=== PATIENT | female | born 1990 | race Caucasian/White ===

== ENCOUNTER 2016-12-01 18:35 | Inpatient (IN) | payer OTHER ==
[~2016-12-01] VITALS: Ht 167.6 cm; Wt 80.7 kg
[2016-12-01 18:57] VITALS: Ht 167.6 cm; Wt 80.7 kg
[2016-12-01 18:58] VITALS: BP 107/65; PULSE 96; RESP 18
[2016-12-01] MEDS ORDERED: MISOPROSTOL 200 MCG TAB PR PRN (20:00)
[2016-12-01] MEDS ORDERED: IBUPROFEN 600 MG TAB PO PRN (20:00)
[2016-12-01] MEDS ORDERED: METHYLERGONOVINE 0.2 MG INJ IM PRN (20:00)
[2016-12-01] MEDS ORDERED: OXYTOCIN 30 UNITS/LR 500 ML IV SCH ×2 (20:00)
[2016-12-01] MEDS ORDERED: OXYTOCIN 30 UNITS/LR 500 ML IV PRN (20:00)
[2016-12-01] MEDS ORDERED: CARBOPROST 250 MCG INJ IM PRN (20:00)
[2016-12-01] MEDS ORDERED: LIDOCAINE 1% (MPF) 30 ML INJ INJ PRN (20:00)
[2016-12-01] MEDS ORDERED: LACTATED RINGER'S 1,000 ML IV PRN (21:00)
--- NOTE | 2016-12-01 21:02 | TRIAGE ---
OB Triage Datetime Report Generated by CPN: 12/01/2016 21:02 Datetime: 12/01/2016 20:00 Stage of : OB Triage Monitor Mode: External Quality: Moderate Pattern: Normal: <= 5 Contractions in 10 Minutes Resting Tone Day: Relaxed Heart Rate FHR Baseline Rate: 150 Monitor Mode: External US FHR Baseline Changes: No Baseline Change Variability: Moderate 6-25 bpm Accelerations: 15X15 Decelerations: Early Category: Category II Datetime: 12/01/2016 19:26 Stage of : OB Triage Labor Evaluation Frequency: 2-10 Monitor Mode: External Duration (sec)2399: 60 Quality: Moderate Pattern: Normal: <= 5 Contractions in 10 Minutes Resting Tone Day: Relaxed Heart Rate FHR Baseline Rate: 150 Monitor Mode: External US FHR Baseline Changes: No Baseline Change Variability: Moderate 6-25 bpm Accelerations: 15X15 Decelerations: Variable Category: Category II Pain Assessment Pain Scale: 4 Pain Presence: Intermittent Pain Type: Contraction Pain Location: Abdomen Vaginal Exam Dilatation (cms): 4.0 Effacement (%): 70 Station: -2 Exam By: E Silvino Membrane Status: Ruptured Membranes Rupture Method: Spontaneous Amniotic Fluid Color: Clear Amniotic Fluid Amount: Large Amniotic Fluid Odor: Normal Vaginal Bleeding: None Pool: Positive Nitrazine: Positive Cervix, Consistency: Soft Cervix, Position: Posterior Presentation 'A': Cephalic Datetime: 12/01/2016 18:56 Assessment Type: Triage Maternal Assessment Level of Consciousness: Fully Conscious DTR's/Clonus: DTRs 2+; No Clonus Headache: Denies Blurred Vision: No Respiratory Effort: Unlabored; Regular Rhythm; Equal Expansion Breath Sounds, Left: Clear and Equal Breath Sounds, Right: Clear and Equal Nausea/Vomiting: Denies RUQ Epigastric Pain: Denies Lower Extremities Edema: None Degree: None Upper Extremities Edema: None Degree: None Facial Edema: None Fall Risk Assessment History of Falling: (0) No Secondary Diagnosis: (0) No Ambulatory Aid: (0) Bedrest/Nurse Assist IV Therapy: (0) No Gait: (0) Normal/Bedrest/Immobile Mental Status: (0) Oriented to Own Ability Fall Score: 0 Fall Risk Score Definition: No Risk: No action required Datetime: 12/01/2016 18:55 Time of Arrival: 12/01/2016 18:30 EGA: 39.2 Arrived By: Ambulatory Arrived From: Home Chief Complaint: PT C/O POSSIBLE SROM AND UC'S Movement: Present Contractions: Irregular Rupture of Membranes: Unsure Vaginal Bleeding: None Vaginal Discharge: Denies Recent Sexual Intercouse: Denies Abdominal Trauma: Not Applicable Patient Complaints: Contractions; Cramping; Back Pain Time Provider Notified: 12/01/2016 20:00 Provider Notified: DANIELLE Initial Plan: EFM,SVE Datetime: 12/01/2016 18:52 Monitor Mode: External Monitor Mode: External US
[2016-12-01 21:08] LABS: ADD SCAN DIFF NO
[2016-12-01 21:13] LABS: BASOPHILS % 0.3 % (0.0-2.0); EOSINOPHILS % 0.3 % (0.0-7.0); HEMATOCRIT 37.7 % (37.0-47.0); HEMOGLOBIN 13.1 g/dl (12.0-16.0); LYMPHOCYTES # 1.8 10^3/ul (0.8-2.9); MEAN CORPUSCULAR HEMOGLOBIN 33.6 pg (29.0-33.0); MEAN CORPUSCULAR HGB CONC 34.7 g/dl (32.0-37.0); MEAN CORPUSCULAR VOLUME 96.7 fl (82.0-101.0); MEAN PLATELET VOLUME 9.9 fl (7.4-10.4); MONOCYTE # 0.6 10^3/ul (0.3-0.9); MONOCYTES % 6.5 % (0.0-11.0); NEUTROPHIL # 6.4 10^3/ul (1.6-7.5); NEUTROPHILS % 71.9 % (39.0-77.0); PLATELET COUNT 170 10^3/UL (140-415); RED CELL DISTRIBUTION WIDTH 12.1 % (11.5-14.5)
[2016-12-01 21:27] LABS: INR 0.9; PROTIME 12.1 Sec (12.2-14.2); PT RATIO 0.9
[2016-12-01 21:28] LABS: PARTIAL THROMBOPLASTIN TIME 25.7 Sec (25.0-35.0)
--- NOTE | 2016-12-01 23:04 | HP ---
Date/Time of Note Date/Time of Note DATE: 12/01/16 TIME: 22:55 OB - History Hx of Present Free Text/Dictation 27 years old A0 HISTORY OF 2 EDC DECEMBER 06 2016 ADMITTED WIT SROM, CLEAR FLUID IN LABOR Chief Complaint: SROM UTERINE CONTRACTIONS Last Menstrual Period: Mar 03, 2016 (03/03/16) Estimated Due Date: Dec 06, 2016 : 3 Para: 2 Care: Limited Care Ultrasounds: Normal mid trimester US Obstetrical Complications: None Medical Complications: None Past Family/Social History * Past Medical, Surgical, Family and Obstetric Histories reviewed from chart. Blood Type: O+ Rubella: immune RPR/VDRL: Negative GBS Status: Negative HBsAG: Negative OB Admission Exam Vital Signs Vital Signs Vital Signs Date Time Temp Pulse Resp B/P Pulse Ox O2 Delivery O2 Flow Rate FiO2 12/01/16 18:58 98.4 96 18 107/65 98 Room Air Physical Exam HEENT: WNL Heart: Rhythm Normal Lungs: Clear, Equal Abdomen: WNL Extremities: Normal Reflexes: Normal Cervical Dilatation: 4cm Effacement: 75% Station: -3 Membranes: Ruptured Amniotic Fluid: Clear Heart Rate: 120's Accelerations: Accelerations Present Decelerations: No Decelerations Varibility: Marked Contractions on Admission: 6-10 Minutes Apart Intensity: Moderate Last 72 hours Lab Results CBC & BMP 12/01/16 20:50 OB Assessment/Plan Reason for admission: active labor, rupture of membranes Plan: Expectant Management Other plan: DELIVERY WERO CONNOR MD Dec 01, 2016 23:04
[2016-12-01] MEDS: LACTATED RINGER'S 1,000 ML IV SCH (23:40)
[2016-12-02] MEDS ORDERED: FENTAnyl 2MCG/ML-ROPIV 0.2% 100 ML ONE (00:48)
[2016-12-02] MEDS ORDERED: NALOXONE (0.4 MG/ML) INJ IV PRN (01:30)
[2016-12-02] MEDS ORDERED: FENTAnyl 2MCG/ML-ROPIV 0.2% 100 ML BAG EPI SCH (01:30)
[2016-12-02] MEDS: LACTATED RINGER'S 1,000 ML IV SCH (01:54)
[2016-12-02] MEDS ORDERED: DIBUCAINE 1% 30 GM OINT PR PRN (03:00)
[2016-12-02] MEDS ORDERED: LANOLIN 7 GM TUBE TOP PRN (03:00)
[2016-12-02] MEDS ORDERED: DIPHENHYDRAMINE 25 MG CAP PO PRN (03:00)
[2016-12-02] MEDS ORDERED: ACETAMINOPHEN/CODEINE #3 TAB PO PRN ×2 (03:00)
[2016-12-02] MEDS ORDERED: ACETAMINOPHEN 325 MG TAB PO PRN ×2 (03:00)
[2016-12-02] MEDS ORDERED: OXYTOCIN 30 UNITS/LR 500 ML IV PRN (03:00)
[2016-12-02] MEDS ORDERED: ONDANSETRON 4 MG INJ IV PRN (03:00)
[2016-12-02] MEDS ORDERED: METHYLERGONOVINE 0.2 MG INJ IM PRN (03:00)
[2016-12-02] MEDS ORDERED: CARBOPROST 250 MCG INJ IM PRN (03:00)
[2016-12-02] MEDS ORDERED: MISOPROSTOL 200 MCG TAB PR PRN (03:00)
--- NOTE | 2016-12-02 03:06 | LDN ---
Date/Time of Note Date/Time of Note DATE: 12/02/16 TIME: 03:04 Delivery Summary augmentation of labor Weeks of Gestation 39 weeks Assisted Vaginal Delivery: Vacuum Placenta Delivered: Spontaneously Meconium: none Episiotomy: No Perineal laceration: 0 Anesthesia type: Epidural Sponge & Needle done & correct: Yes All needle counts correct: Yes Any foreign bodies felt in the: No Problems: Delivery Information Sex Sex: male Apgars 1 Minute: 9 5 Minute: 9 Suctioning Nose & mouth suctioned at dione: Yes Umbilical Cord Umbilical cord with: 3 Vessels Cord presentations: nuchal cord Cord Blood was obtained: Yes Mother & Baby Disposition Disposition Mom & Baby to Maternity; Good: Yes WERO CONNOR MD Dec 02, 2016 03:06
[2016-12-02] MEDS: OXYTOCIN 30 UNITS/LR 500 ML IV SCH ×2 (03:50→06:41)
[2016-12-02 06:20] LABS: ADD SCAN DIFF NO
[2016-12-02 06:26] LABS: BASOPHILS % 0.2 % (0.0-2.0); EOSINOPHILS % 0.2 % (0.0-7.0); HEMATOCRIT 36.2 % (37.0-47.0); HEMOGLOBIN 12.2 g/dl (12.0-16.0); LYMPHOCYTES # 1.9 10^3/ul (0.8-2.9); LYMPHOCYTES % 15.4 % (15.0-51.0); MEAN CORPUSCULAR HEMOGLOBIN 32.9 pg (29.0-33.0); MEAN CORPUSCULAR HGB CONC 33.7 g/dl (32.0-37.0); MEAN CORPUSCULAR VOLUME 97.6 fl (82.0-101.0); MONOCYTE # 0.6 10^3/ul (0.3-0.9); MONOCYTES % 5.1 % (0.0-11.0); NEUTROPHIL # 9.7 10^3/ul (1.6-7.5); NEUTROPHILS % 78.4 % (39.0-77.0); PLATELET COUNT 150 10^3/UL (140-415); RED BLOOD COUNT 3.71 10^6/ul (4.20-5.40); RED CELL DISTRIBUTION WIDTH 12.1 % (11.5-14.5); WHITE BLOOD COUNT 12.4 10^3/ul (4.8-10.8)
[2016-12-02 06:30] VITALS: BP 106/64; PULSE 59; RESP 17
[2016-12-02] MEDS: IBUPROFEN 600 MG TAB PO SCH ×4 (06:40→23:55)
[2016-12-02 08:00] VITALS: BP 101/64; PULSE 62; RESP 18
[2016-12-02] MEDS: SENNA/DOCUSATE NA (8.6MG/50MG) TAB PO SCH ×2 (09:58→21:42)
[2016-12-02 12:00] VITALS: BP 108/63; PULSE 66; RESP 16
[2016-12-02 16:00] VITALS: BP 117/81; PULSE 80; RESP 16
[2016-12-02 19:45] VITALS: BP 103/69; PULSE 64; RESP 18
[2016-12-03 05:07] VITALS: BP 108/63; PULSE 72; RESP 18
[2016-12-03] MEDS: IBUPROFEN 600 MG TAB PO SCH ×4 (06:00→23:56)
[2016-12-03 08:45] VITALS: BP 112/73; PULSE 63; RESP 18
[2016-12-03] MEDS: SENNA/DOCUSATE NA (8.6MG/50MG) TAB PO SCH ×2 (09:55→21:30)
--- NOTE | 2016-12-03 12:00 | PN ---
Date/Time of Note Date/Time of Note DATE: 12/03/16 TIME: 11:58 OB Subjective Subjective Subjective doing well, stable breast feeding not in pain uterus contracted. extremities wnl. lochia normal. cbc wnl OB Objective HEENT: WNL Heart: Rhythm Normal Lungs: Clear, Equal Abdomen: WNL Extremities: Normal Reflexes: Normal WERO CONNOR MD Dec 03, 2016 12:00
[2016-12-03 16:00] VITALS: BP 121/69; PULSE 69; RESP 18
[2016-12-03 20:00] VITALS: BP 103/53; PULSE 81; RESP 18
[2016-12-04 04:40] VITALS: BP 100/63; PULSE 65; RESP 18
[2016-12-04] MEDS: IBUPROFEN 600 MG TAB PO SCH ×2 (06:00→12:54)
[2016-12-04 07:45] VITALS: BP 109/63; PULSE 72; RESP 18
[2016-12-04] MEDS ORDERED: DIPHTH/TET/ACEL PERTUSS (ADULT) 0.5 ML VIAL IM* ONE (09:00)
[2016-12-04] MEDS ORDERED: VARICELLA VACCINE LIVE/PF 1,350 UNIT/0.5 ML ML SC* ONE (09:00)
[2016-12-04] MEDS: SENNA/DOCUSATE NA (8.6MG/50MG) TAB PO SCH (09:41)
--- NOTE | 2016-12-04 11:51 | PD.PPDC ---
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
--- NOTE | 2016-12-04 11:53 | DS ---
Date/Time of Note Date/Time of Note DATE: 12/04/16 TIME: 11:52 Obstetrical Discharge Record Final Diagnosis Final Diagnosis: Term delivered Vaginal Delivery Obstetrical Delivery: Vacuum Extraction Complications Augmentation: Yes Condition on Discharge Physical Assessment Voiding: Yes Bowel Movement: Yes Breast: Soft, non-tender, Filling Fundus: Firm Calf Tenderness: No Patient Condition: Good WERO CONNOR MD Dec 04, 2016 11:53
== END 2016-12-04 15:30 | disposition home or self-care (01) | DRG 775 ==
LOC: OBT 18:35 → L-D 18:36 → OBT 19:30 → L-D 23:05 → PP1 12-02 06:24
PROVIDERS: ADMIT Obstetrics & Gynecology; ATTEND Obstetrics & Gynecology
PROC: 10D07Z6 Extraction of Products of Conception, Vacuum, Via Natural or Artificial Opening (ICD-10-PCS; principal; 2016-12-01)
DX: O69.81X0 Labor and delivery complicated by cord around neck, without compression, not applicable or unspecified (principal); Z37.0 Single live birth; Z3A.39 39 weeks gestation of pregnancy
CPT/HCPCS: 36415; 62319; 85025; 85610; 85730; 86592; 86900; 86901; 87340; 90715; 90716; 96360; 96361; G0463; J2590; J3010; J7120

== ENCOUNTER 2018-11-04 15:07 | Outpatient (CLI) | payer OTHER ==
[~2018-11-04] VITALS: Ht 165.1 cm; Wt 81.5 kg
[2018-11-04 15:40] VITALS: BP 102/61; PULSE 82; Ht 165.1 cm; Wt 81.5 kg
--- NOTE | 2018-11-04 16:59 | TRIAGE ---
OB Triage Datetime Report Generated by CPN: 11/04/2018 16:59 Datetime: 11/04/2018 15:44 Assessment Type: Triage Maternal Assessment Level of Consciousness: Fully Conscious DTR's/Clonus: DTRs 2+; No Clonus Headache: Denies Blurred Vision: No Respiratory Effort: Unlabored; Regular Rhythm; Equal Expansion Breath Sounds, Left: Clear and Equal Breath Sounds, Right: Clear and Equal Nausea/Vomiting: Denies RUQ Epigastric Pain: Denies Lower Extremities Edema: None Degree: None Upper Extremities Edema: None Degree: None Facial Edema: None Fall Risk Assessment History of Falling: (0) No Secondary Diagnosis: (0) No Ambulatory Aid: (0) Bedrest/Nurse Assist IV Therapy: (0) No Gait: (0) Normal/Bedrest/Immobile Mental Status: (0) Oriented to Own Ability Fall Score: 0 Fall Risk Score Definition: No Risk: No action required Datetime: 11/04/2018 15:43 Time of Arrival: 11/04/2018 15:00 EGA: 39.4 Arrived By: Ambulatory Arrived From: Office Chief Complaint: to ob triage from md office with prescription for nst, bpp, efw due to decreased f m Movement: Decreased Contractions: Denies/Absent Rupture of Membranes: Denies Vaginal Bleeding: None Vaginal Discharge: Denies Recent Sexual Intercouse: Denies Abdominal Trauma: Not Applicable Patient Complaints: Other Time Provider Notified: 11/04/2018 16:52 Provider Notified: Initial Plan: nst, bpp, efw
--- NOTE | 2018-11-04 18:24 | PN ---
Triage Information Date/Time 11/04/18 Reason for visit: DFM Weeks of Gestation 39w4d /Para Diabetes: none Hypertention: none Objective Vital Signs Date Temp Pulse Resp B/P (MAP) Pulse Ox O2 O2 Flow FiO2 Time Delivery Rate 11/04/18 98.1 82 102/61 15:40 (75) Heart Rate: 140's Heart Rate Comments CAT I tracing Contractions: None Results/Medications Imaging Results BPP 01/19 ROSITA 13 EFW 3768 gm Disposition: Discharge Assessment/Plan A IUP 39w4d DFM P f/u with OB on november 08 DERICK SANTOS MD November 04, 2018 18:24
== END 2018-11-04 17:00 | disposition home or self-care (01) ==
LOC: OBT 15:07 → L-D 15:08 → OBT 17:00
PROVIDERS: ATTEND Obstetrics & Gynecology
DX: O36.8130 Decreased fetal movements, third trimester, not applicable or unspecified (principal); Z3A.39 39 weeks gestation of pregnancy
CPT/HCPCS: 76815; 76818; Z7500; G0463

== ENCOUNTER 2018-11-10 09:00 | Inpatient (IN) | payer OTHER ==
[~2018-11-10] VITALS: Ht 165.1 cm; Wt 82.7 kg
[2018-11-10] MEDS ORDERED: METHYLERGONOVINE 0.2 MG INJ IM PRN (09:30)
[2018-11-10] MEDS ORDERED: LIDOCAINE 1% (MPF) 30 ML INJ INJ PRN (09:30)
[2018-11-10] MEDS ORDERED: IBUPROFEN 600 MG TAB PO PRN (09:30)
[2018-11-10] MEDS ORDERED: OXYTOCIN 30 UNITS/LR 500 ML IV SCH (09:30)
[2018-11-10] MEDS ORDERED: BUTORPHANOL 2 MG INJ IV PRN ×2 (09:30)
[2018-11-10] MEDS ORDERED: CARBOPROST 250 MCG INJ IM PRN (09:30)
[2018-11-10] MEDS ORDERED: OXYTOCIN 30 UNITS/LR 500 ML IV PRN (09:30)
[2018-11-10] MEDS ORDERED: MISOPROSTOL 200 MCG TAB PR PRN (09:30)
[2018-11-10] MEDS: LACTATED RINGER'S 1,000 ML IV SCH ×2 (09:56→17:29)
[2018-11-10 10:10] VITALS: BP 110/67; PULSE 79; RESP 18
[2018-11-10 10:18] VITALS: Ht 165.1 cm; Wt 82.7 kg
[2018-11-10] MEDS: MISOPROSTOL 50 MCG CAPSULE PO SCH ×3 (11:48→20:06)
[2018-11-10] MEDS ORDERED: MISOPROSTOL 50 MCG CAPSULE PO SCH (13:00)
--- NOTE | 2018-11-10 22:01 | HP ---
Date/Time of Note Date/Time of Note DATE: 11/10/18 TIME: 21:56 OB - History Hx of Present Free Text/Dictation 29 years old female 4 para 3 with an EDC of 11/07/2018 by ultrasound and by last. Menses 10/31/2018. this patient had care in my office uneventfully starting in the second trimester of . She has had early ultrasounds and at this time she is being admitted for induction of labor due to postdates Last Menstrual Period: Jan 24, 2018 Estimated Due Date: November 07, 2018 : 4 Para: 3 Care: Good Care Ultrasounds: Normal mid trimester US Obstetrical Complications: None Medical Complications: None Past Family/Social History * Past Medical, Surgical, Family and Obstetric Histories reviewed from chart. Blood Type: O+ Rubella: immune RPR/VDRL: Negative GBS Status: Negative HBsAG: Negative OB Admission Exam Vital Signs Vital Signs Vital Signs Date Temp Pulse Resp B/P (MAP) Pulse Ox O2 O2 Flow FiO2 Time Delivery Rate 11/10/18 98.3 79 18 110/67 Room Air 10:10 (81) Physical Exam HEENT: WNL Heart: Rhythm Normal Lungs: Clear, Equal Abdomen: WNL Extremities: Normal Reflexes: Normal Cervical Dilatation: Fingertip Effacement: 25% Station: -2 Membranes: Intact Heart Rate: 130's Accelerations: Accelerations Present Contractions on Admission: 6-10 Minutes Apart Intensity: Mild Last 72 hours Lab Results CBC & BMP 11/10/18 09:20 OB Assessment/Plan Reason for admission: induction of labor Plan: Induction Induction Method: per Misoprostol Protocol WERO CONNOR MD November 10, 2018 22:01
[2018-11-11] MEDS: MISOPROSTOL 50 MCG CAPSULE PO SCH (00:31)
[2018-11-11] MEDS: LACTATED RINGER'S 1,000 ML IV SCH ×3 (00:31→10:08)
--- NOTE | 2018-11-11 05:13 | PREAC ---
Date/Time of Note Date/Time of Note DATE: 11/11/18 TIME: 05:12 Anesthesia Eval and Record Evaluation Time Pre-Procedure Interview DATE: 11/11/18 TIME: 05:12 Age 28 Sex female NPO: 8 hrs Preoperative diagnosis Planned procedure labor epidural Past Medical History Past Medical History: Includes GI: Obesity Surgery & Anesthesia Issues No known issue Meds Anticoagulation: No Beta Baron within 24 hr: No Reason Beta Baron not given: Pt. not on B-Baron No Active Prescriptions or Reported Meds Current Medications Lactated Ringer's 1,000 ml @ 125 mls/hr Q8H IV Last administered on 11/11/18at 00:31; Admin Dose 125 MLS/HR; Start 11/10/18 at 09:21 Butorphanol Tartrate (Stadol) 1 mg Q2H PRN IV .PAIN SCALE 1-5; Start 11/10/18 at 09:30 Butorphanol Tartrate (Stadol) 2 mg Q2H PRN IV .PAIN SCALE 6-10; Start 11/10/18 at 09:30 Lidocaine (Xylocaine 1% (Mpf)) 30 ml ONCE PRN INJ .EPISIOTOMY; Start 11/10/18 at 09:30 Oxytocin/Lactated Ringer's 500 ml @ 500 mls/hr ONCE POST IV ; Start 11/10/18 at 09:30 Oxytocin/Lactated Ringer's 500 ml @ 125 mls/hr POST IV ; Start 11/10/18 at 09:30 Ibuprofen (Motrin) 600 mg ONCE PRN PO .PAIN 1-5; Start 11/10/18 at 09:30 Oxytocin/Lactated Ringer's 500 ml @ 0 mls/hr ONCE PRN IV .VAGINAL BLEEDING; Start 11/10/18 at 09:30 Methylergonovine Maleate (Methergine) 0.2 mg ONCE PRN IM .VAGINAL BLEEDING; Start 11/10/18 at 09:30 Carboprost Tromethamine (Hemabate) 250 mcg ONCE PRN IM .VAGINAL BLEEDING; Start 11/10/18 at 09:30 Misoprostol (Cytotec) 1,000 mcg ONCE PRN NM .VAGINAL BLEEDING; Start 11/10/18 at 09:30 Misoprostol (Cytotec 50 Mcg Capsule) 50 mcg Q4 PO Last administered on 11/11/18at 00:31; Admin Dose 50 MCG; Start 11/10/18 at 12:00; Stop 11/11/18 at 09:01 Meds reviewed: Yes Allergies Coded Allergies: No Known Allergy (Unverified , 12/01/16) Allergies Reviewed: Yes Labs/Studies Labs Reviewed: Reviewed by anesthesiologist Result Diagram: 11/10/1820 Laboratory Tests 11/10/18 09:20 Blood Bank Test 11/10/18 09:20 Antibody Screen NEGATIVE Blood Type O POSITIVE Rh Immune Globulin Candidate NO test: Positive Pre-procedure Exam Last vitals Vital Signs Date Temp Pulse Resp B/P (MAP) Pulse Ox O2 O2 Flow FiO2 Time Delivery Rate 11/10/18 98.3 79 18 110/67 Room Air 10:10 (81) Airway: Adequate mouth opening, Adequate thyromental dist Mallampati: Mallampati II Teeth: Normal Lung: Normal Heart: Normal ASA Physical Status ASA physical status: 2 Emergency: None Planned Anesthetic Neuraxial: Epidural Pre-operative Attestations Prior to commencing anesthesia and surgery, the patient was re-evaluated, there was verification of: *The patient's identity *The results of appropriate recent lab work and preoperative vital signs *The above evaluation not changing prior to induction *Anesthetic plan, risk benefits, alternative and complications discussed with patient/family; questions answered; patient/family understands, accepts and wishes to proceed. KRISTYN SMYTH November 11, 2018 05:13
[2018-11-11] MEDS ORDERED: NALOXONE (0.4 MG/ML) INJ IV PRN (05:30)
[2018-11-11] MEDS ORDERED: DIPHENHYDRAMINE 50 MG INJ IV PRN ×2 (05:30→19:30)
[2018-11-11] MEDS ORDERED: HYDROmorphONE 0.5 MG/0.5 ML SYG IV PRN ×2 (05:30)
[2018-11-11] MEDS ORDERED: FENTAnyl 2MCG/ML-ROPIV 0.2% 100 ML BAG EPI SCH (05:30)
[2018-11-11] MEDS ORDERED: OXYTOCIN 30 UNITS/LR 500 ML IV SCH (05:30)
[2018-11-11] MEDS ORDERED: KETOROLAC 30 MG INJ IV PRN (05:30)
[2018-11-11] MEDS ORDERED: ONDANSETRON 4 MG INJ IV PRN ×2 (05:30→19:30)
--- NOTE | 2018-11-11 06:03 | PAC ---
Date/Time of Note Date/Time of Note DATE: 11/11/18 TIME: 06:03 Post-Anesthesia Notes Post-Anesthesia Note Last documented vital signs Vital Signs Date Temp Pulse Resp B/P (MAP) Pulse Ox O2 O2 Flow FiO2 Time Delivery Rate 11/10/18 98.3 79 18 110/67 Room Air 10:10 (81) Activity: WNL Respiratory function: WNL Cardiovascular function: WNL Mental status: Baseline Pain reasonably controlled: Yes Hydration appropriate: Yes Nausea/Vomiting absent: Yes KRISTYN SMYTH November 11, 2018 06:03
[2018-11-11] MEDS ORDERED: MINERAL OIL LIGHT 10 ML VIAL TOP ONE (08:30)
[2018-11-11] MEDS: OXYTOCIN 30 UNITS/LR 500 ML IV SCH ×2 (12:51→17:19)
[2018-11-11 14:40] VITALS: BP 125/82; PULSE 46; RESP 17
[2018-11-11 15:45] VITALS: BP 106/73; PULSE 50; RESP 18
[2018-11-11] MEDS: LACTATED RINGER'S 1,000 ML IV* SCH (19:17)
[2018-11-11] MEDS ORDERED: DIBUCAINE 1% 30 GM OINT TOP PRN (19:30)
[2018-11-11] MEDS ORDERED: MAGNESIUM HYDROXIDE 30ML CUP PO PRN (19:30)
[2018-11-11] MEDS ORDERED: DIPHENHYDRAMINE 25 MG CAP PO PRN (19:30)
[2018-11-11] MEDS ORDERED: ACETAMINOPHEN 325 MG TAB PO PRN ×2 (19:30)
[2018-11-11] MEDS ORDERED: METHYLERGONOVINE 0.2 MG INJ IM PRN (19:30)
[2018-11-11] MEDS ORDERED: MISOPROSTOL 200 MCG TAB PR PRN (19:30)
[2018-11-11] MEDS ORDERED: ONDANSETRON 4 MG TAB PO PRN (19:30)
[2018-11-11] MEDS ORDERED: SENNA/DOCUSATE NA (8.6MG/50MG) TAB PO PRN (19:30)
[2018-11-11] MEDS ORDERED: LANOLIN HPA 1 PKT TOP PRN (19:30)
[2018-11-11] MEDS ORDERED: CARBOPROST 250 MCG INJ IM PRN (19:30)
[2018-11-11] MEDS ORDERED: OXYTOCIN 30 UNITS/LR 500 ML IV PRN (19:30)
[2018-11-11 20:00] VITALS: BP 110/63; RESP 19
[2018-11-11] MEDS: IBUPROFEN 800 MG TAB PO SCH (23:00)
[2018-11-11] MEDS ORDERED: HYDROCODONE/APAP (5/325) TAB PO PRN ×2 (23:00)
[2018-11-12] MEDS: LACTATED RINGER'S 1,000 ML IV* SCH (03:17)
[2018-11-12 04:00] VITALS: BP 98/59; PULSE 70; RESP 16
[2018-11-12] MEDS ORDERED: IBUPROFEN 800 MG TAB PO SCH (06:00)
[2018-11-12] MEDS: IBUPROFEN 800 MG TAB PO SCH ×5 (06:22→23:45)
[2018-11-12 08:30] VITALS: BP 101/62; PULSE 80; RESP 18
--- NOTE | 2018-11-12 14:06 | PN ---
Date/Time of Note Date/Time of Note DATE: 11/12/18 TIME: 14:02 OB Subjective Subjective Subjective Day 1 doing well.. uterus contracted, lochia normal. Breast-feeding, not bleeding much. Laboratory testing near normal Possible home in the morning OB Objective HEENT: WNL Heart: Rhythm Normal Lungs: Clear, Equal Abdomen: WNL Extremities: Normal Reflexes: Normal WERO CONNOR MD Nov 12, 2018 14:06
[2018-11-12 16:14] VITALS: BP 102/63; PULSE 81; RESP 18
[2018-11-12 20:05] VITALS: BP 101/56; PULSE 70; RESP 18
[2018-11-13 03:55] VITALS: BP 105/68; PULSE 69
[2018-11-13] MEDS: IBUPROFEN 800 MG TAB PO SCH ×2 (06:18→12:33)
[2018-11-13 08:30] VITALS: BP 100/63; PULSE 60; RESP 18
[2018-11-13] MEDS ORDERED: MEASLES,MUMPS,RUBELLA VACCINE INJ SC* ONE (09:00)
[2018-11-13] MEDS ORDERED: VARICELLA VACCINE LIVE/PF 1,350 UNIT/0.5 ML ML SC* ONE (09:00)
[2018-11-13] MEDS ORDERED: DIPHTH/TET/ACEL PERTUSS (ADULT) 0.5 ML VIAL IM* ONE (09:00)
--- NOTE | 2018-11-14 14:53 | DELSUM ---
Delivery Summary A-C Datetime Report Generated by CPN: 11/14/2018 14:53 DELIVERY PERSONNEL Extract Puller: Badgett, Rosmery MATERNAL INFORMATION Delivery Anesthesia: Epidural Medications in Delivery: pitocin, methergine im Delivery QBL (ml): 400 Placenta Cultured: No Maternal Complications: None RN Comments: postdates, reactive RPR yet FTA-ABS in non-reactive and titer is 1 to 1, LABOR SUMMARY EDC: 11/07/2018 00:00 No. Babies in Womb: 1 Attempted: No Labor Anesthesia: Epidural LABOR INFORMATION Reason for Induction: Postterm Onset of Labor: 11/11/2018 00:01 Complete Dilatation: 11/11/2018 10:25 Cervical Ripening Agents: Cytotec @ Oxytocin: Induction Group B Beta Strep: Negative Antibiotics # of Doses: 0 Steroids Given: None Reason Steroids Not Administered: Not Applicable MEMBRANES Membranes Rupture Method: Artificial Rupture of Membranes: 11/04/2018 07:43 Length of Rupture (hr): 170.73 Amniotic Fluid Color: Clear Amniotic Fluid Amount: Moderate Amniotic Fluid Odor: Normal STAGES OF LABOR Stage 1 hr: 10 Stage 1 min: 24 Stage 2 hr: 0 Stage 2 min: 2 Stage 3 hr: -167 Stage 3 min: -59 Total Time in Labor hr: -157 Total Time in Labor min: -33 VAGINAL DELIVERY Episiotomy: None Laceration Extension: First Degree Laceration Type: Perineal Initial Vag Sponge Count: 10 Final Vag Sponge Count: 10 Initial Vag Sharps Count: 2 Final Vag Sharps Count: 2 Sponge Count Correct: Yes Sharps Count Correct: Yes BABY A INFORMATION Delivery Date/Time: 11/11/2018 10:27 Method of Delivery: Vaginal Born in Route : No : N/A Forceps: N/A Vacuum Extraction: N/A Shoulder Dystocia : No SHOULDER DYSTOCIA BABY A Infant Delivery Date/Time: 11/11/2018 10:27 PRESENTATION/POSITION BABY A Presentation: Cephalic Cephalic Presentation: Vertex Vertex Position: Left Occipital Anterior Breech Presentation: N/A PLACENTA INFORMATION BABY A Placenta Delivery Time : 11/04/2018 10:28 Placenta Method of Delivery: Spontaneous Placenta Status: Delivered SCORES BABY A Heart Rate 1 min: >100 bpm Resp Effort 1 min: Good Cry Reflex Irritability 1 min: Cough/Sneeze/Pulls Away Muscle Tone 1 min: Active Motion Color 1 min: Blue/Pale Resuscitation Effort 1 min: Tactile Stimulation SCORE 1 MIN: 8 Heart Rate 5 min: >100 bpm Resp Effort 5 min: Good Cry Reflex Irritability 5 min: Cough/Sneeze/Pulls Away Muscle Tone 5 min: Active Motion Color 5 min: Body Ursa, Extremit Blue Resuscitation Effort 5 min: Tactile Stimulation SCORE 5 MIN: 9 INFANT INFORMATION BABY A Gestational Age at Delivery: 40.4 Gestational Status: Full Term- 39- 40.6 Weeks Infant Outcome : Liveborn Condition : Stable Sex: Male IDENTIFICATION/MEDS BABY A ID Band Number: [id number] ID Band Location: Right Leg; Left Arm Sensor Applied: Yes Sensor Number: [id number] Sensor Location : Cord Clamp Vitamin K Given : Not Given Erythromycin Given: Not Given WEIGHT/LENGTH BABY A Infant Birthweight (gm): 3930 Weight (lb): 8 Weight (oz): 11 Length (in): 21.00 Infant Length (cm): 53.34 CORD INFORMATION BABY A No. Cord Vessels: 3 Nuchal Cord : N/A Cord Blood Taken: Yes Suction: Mouth; Nose ASSESSMENT BABY A Infant Complications: Other Infant Complications- Other: postdates, RPR reactive but FTA-ABS is non reactive, Titer 1 to 1 Physical Findings at Delivery: Within Normal Limits Respirations: Appears Normal Sales Rep/ALS Called : No Infant Care By: cesar stout rn Transferred To: Remains with Mother
--- NOTE | 2018-12-07 23:23 | LDN ---
Date/Time of Note Date/Time of Note DATE: 12/07/18 TIME: 23:21 Delivery Summary Term Induction of labor Spontaneous vaginal delivery First-degree laceration repaired on the epidural anesthesia No complications No bleeding Weeks of Gestation 40.6 Placenta Delivered: Spontaneously Episiotomy: No Sponge & Needle done & correct: Yes All needle counts correct: Yes Any foreign bodies felt in the: No Infant Delivery Information Sex Infant Sex: male Apgars 1 Minute: 9 Suctioning Nose & mouth suctioned at dione: Yes Umbilical Cord Umbilical cord with: 3 Vessels Cord presentations: no nuchal cord Cord Blood was obtained: Yes Mother & Baby Disposition Disposition Mom & Baby to Maternity; Good: Yes WERO CONNOR MD Dec 07, 2018 23:23
--- NOTE | 2018-12-07 23:26 | DS ---
Date/Time of Note Date/Time of Note DATE: 12/07/18 TIME: 23:25 Obstetrical Discharge Record Final Diagnosis Final Diagnosis: Term delivered Vaginal Delivery Obstetrical Delivery: Spontaneous Complications Induction: Yes Condition on Discharge Physical Assessment Voiding: Yes Bowel Movement: Yes Breast: Soft, non-tender, Filling Fundus: Firm Calf Tenderness: No Patient Condition: Good WERO CONNOR MD Dec 07, 2018 23:26
== END 2018-11-13 14:25 | disposition home or self-care (01) | DRG 807 ==
LOC: L-D 09:02 → PP1 11-11 14:40
PROVIDERS: ADMIT Obstetrics & Gynecology; ATTEND Obstetrics & Gynecology
PROC: 10E0XZZ Delivery of Products of Conception, External Approach (ICD-10-PCS; principal; 2018-11-11)
PROC: 0HQ9XZZ Repair Perineum Skin, External Approach (ICD-10-PCS; 2018-11-11)
DX: O48.0 Post-term pregnancy (principal); Z37.0 Single live birth; O70.0 First degree perineal laceration during delivery; O99.214 Obesity complicating childbirth; E66.9 Obesity, unspecified; Z3A.40 40 weeks gestation of pregnancy; Z23 Encounter for immunization
CPT/HCPCS: 62322; 76815; 85025; 85610; 85730; 86592; 86850; 86900; 86901; 90715; 90716; J2210; J2590; J3010; J7120